=== PATIENT | male | born 1965 | race African-American/Black ===

== ENCOUNTER 2017-03-12 09:01 | Inpatient (IN) | payer OTHER ==
[2017-03-12 09:21] VITALS: BMI 25.0
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
[2017-03-12] MEDS ORDERED: MAGNESIUM CITRATE 300 ML BOTTLE PO PRN (09:40)
[2017-03-12] MEDS ORDERED: NICOTINE POLACRILEX 2 MG GUM BUC PRN (09:40)
[2017-03-12] MEDS ORDERED: ACETAMINOPHEN 325 MG TABLET (FP) PO PRN (09:40)
[2017-03-12] MEDS ORDERED: P-EPHED 60MG/TRIPROLIDI 2.5MG TABLET PO PRN (09:40)
[2017-03-12] MEDS ORDERED: IBUPROFEN 400 MG TABLET (FP) PO PRN (09:40)
[2017-03-12] MEDS ORDERED: chlordiazePOXIDE HCL 25 MG CAPSULE PO PRN (09:40)
[2017-03-12] MEDS ORDERED: hydrOXYzine PAMOATE 50 MG CAPSULE (FP) PO PRN (09:40)
[2017-03-12] MEDS ORDERED: MAGNESIUM HYDROX 2400MG/30ML ORAL SUSPENSION 30 ML CUP PO PRN (09:40)
[2017-03-12] MEDS ORDERED: guaiFENesin/D-METHORPHAN HB 10 ML UNIT-DOSE CUPS PO PRN (09:40)
[2017-03-12] MEDS ORDERED: MENTHOL/PHENOL 1 EACH UD MM PRN (09:40)
[2017-03-12] MEDS ORDERED: LOPERAMIDE HCL 2 MG CAPSULE PO PRN (09:40)
[2017-03-12] MEDS ORDERED: MAG HYDROX/AL HYDROX/SIMETH 30 ML UNIT-DOSE CUP PO PRN (09:40)
[2017-03-12] MEDS ORDERED: PATIENT'S OWN MEDICATION (NON-FORMULARY) (Lisinopril [Zestril] 2.5 MG) PO SCH (10:00)
[2017-03-12] MEDS ORDERED: PATIENT'S OWN MEDICATION (NON-FORMULARY) (Metformin Hcl [Glucophage] 1,000 MG) PO SCH (10:00)
[2017-03-12] MEDS ORDERED: chlordiazePOXIDE HCL 25 MG CAPSULE PO ONE (12:30)
[2017-03-12] MEDS ORDERED: LISINOPRIL 5 MG TABLET (FP) PO ONE (12:30)
[2017-03-12] MEDS: INSULIN SLIDING SCALE (NOVOLOG) 1 VIAL SQ SCH ×3 (13:44→22:50)
[2017-03-12] MEDS: sitaGLIPtin PHOSPHATE 50 MG TABLET PO SCH (13:44)
[2017-03-12] MEDS: PRENATAL VITAMINS W/ FOLIC ACID TABLET (FP) PO SCH (13:46)
[2017-03-12] MEDS ORDERED: INSULIN (NOVOLOG) ASPART 100 UNITS/ML 10ML VIAL ONE (13:51)
[2017-03-12] MEDS: metFORMIN HCL 500 MG TABLET (FP) PO SCH (18:03)
[2017-03-12] MEDS: chlordiazePOXIDE HCL 25 MG CAPSULE PO SCH ×2 (18:07→22:48)
[2017-03-12 18:17] LABS: URINE APPEARANCE CLEAR; URINE BILIRUBIN NEGATIVE (NEGATIVE); URINE BLOOD NEGATIVE (NEGATIVE); URINE COLOR LTYELLOW; URINE GLUCOSE (UA) 3+ (NEGATIVE); URINE KETONE 1+ (NEGATIVE); URINE NITRITE NEGATIVE (NEGATIVE); URINE PROTEIN NEGATIVE (NEGATIVE); URINE UROBILINOGEN NEGATIVE mg/dL (0.2-1.0)
--- NOTE | 2017-03-12 19:40 | EKG ---
Test Reason : Blood Pressure : / mmHG Vent. Rate : 068 BPM Atrial Rate : 068 BPM P-R Int : 146 ms QRS Dur : 084 ms QT Int : 388 ms P-R-T Axes : 074 044 041 degrees QTc Int : 412 ms NORMAL SINUS RHYTHM PROBABLLE ATRIAL ABNORMALITY NO PREVIOUS ECGS AVAILABLE CLINICAL CORRELATION IS RECOMMENDED Confirmed by TESSA WARNER MD ([id number]) on 03/12/2017 7:39:59 PM Referred By: Confirmed By:TESSA WARNER MD
[2017-03-12] MEDS ORDERED: diphenhydrAMINE HCL 50 MG CAPSULE PO PRN (22:00)
[2017-03-12] MEDS: THIAMINE HCL 100 MG TABLET (FP) PO SCH (22:48)
[2017-03-12 23:14] LABS: URINE LEUK ESTERASE Negative (NEGATIVE)
[2017-03-13] MEDS: chlordiazePOXIDE HCL 25 MG CAPSULE PO SCH ×4 (06:27→22:27)
[2017-03-13] MEDS: metFORMIN HCL 500 MG TABLET (FP) PO SCH ×2 (06:28→17:14)
[2017-03-13] MEDS: sitaGLIPtin PHOSPHATE 50 MG TABLET PO SCH (06:28)
[2017-03-13] MEDS ORDERED: INSULIN (NOVOLOG) ASPART 100 UNITS/ML 10ML VIAL ONE ×2 (06:37→11:00)
[2017-03-13] MEDS: INSULIN SLIDING SCALE (NOVOLOG) 1 VIAL SQ SCH ×4 (07:45→22:29)
[2017-03-13] MEDS: PRENATAL VITAMINS W/ FOLIC ACID TABLET (FP) PO SCH (10:14)
[2017-03-13] MEDS: LISINOPRIL 5 MG TABLET (FP) PO SCH (10:14)
[2017-03-13 10:22] LABS: MCH 30.6 pg (25.7-33.7); MCHC 32.6 g/dl (32.0-35.9); MEAN CELL VOLUME 93.6 fl (80-96); MEAN PLT VOLUME 10.4 fl (7.5-11.1); PLATELET COUNT 180 K/MM3 (134-434); WHITE BLOOD COUNT 11.3 K/mm3 (4.0-10.0)
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
[2017-03-13 10:32] LABS: ALBUMIN 3.8 g/dl (3.4-5.0); ALK PHOS 64 U/L (45-117); ANION GAP 8 (8-16); BILIRUBIN,TOTAL 0.4 mg/dL (0.2-1.0); CALCIUM 9.2 mg/dL (8.5-10.1); CO2 29 mmol/L (21-32); GLUCOSE,RANDOM 168 mg/dL (74-106); SGOT/AST 54 U/L (15-37); SGPT/ALT 51 U/L (12-78); TOT PROT 7.7 g/dl (6.4-8.2)
--- NOTE | 2017-03-13 11:05 | PN ---
S CIWA - CIWA Score Nausea/Vomitin-Mild Nausea/No Vomiting Muscle Tremors: 3 Anxiety: 3 Agitation: 3 Paroxysmal Sweats: 3 Orientation: 0-Oriented Tacttile Disturbances: 0-None Auditory Disturbances: 0-None Visual Disturbances: 0-None Headache: 0-None Present CIWA-Ar Total Score: 13 S Progress Note (SOAP) Subjective: Sweating,interrupted sleep,restless. Objective: 03/13/17 11:04 Vital Signs - 8 hr 03/13/17 03/13/17 03/13/17 03:56 05:00 10:00 Temperature 96.9 F L 97.1 F L Pulse Rate 80 74 Respiratory 18 18 18 Rate Blood Pressure 108/77 112/53 Laboratory Last Values WBC 11.3 K/mm3 (4.0-10.0) H D 03/13/17 07:40 RBC 5.13 M/mm3 (4.00-5.60) 03/13/17 07:40 Hgb 15.7 GM/dL (11.7-16.9) D 03/13/17 07:40 Hct 48.0 % (35.4-49) D 03/13/17 07:40 MCV 93.6 fl (80-96) 03/13/17 07:40 MCH 30.6 pg (25.7-33.7) 03/13/17 07:40 MCHC 32.6 g/dl (32.0-35.9) 03/13/17 07:40 RDW 14.0 % (11.9-15.9) 03/13/17 07:40 Plt Count 180 K/MM3 (134-434) 03/13/17 07:40 MPV 10.4 fl (7.5-11.1) 03/13/17 07:40 Sodium 139 mmol/L (136-145) 03/13/17 07:40 Potassium 3.9 mmol/L (3.5-5.1) 03/13/17 07:40 Chloride 102 mmol/L (98-107) 03/13/17 07:40 Carbon Dioxide 29 mmol/L (21-32) 03/13/17 07:40 Anion Gap 8 (8-16) 03/13/17 07:40 BUN 13 mg/dL (7-18) 03/13/17 07:40 Creatinine 1.0 mg/dL (0.7-1.3) 03/13/17 07:40 Creat Clearance w eGFR > 60 (>60) 03/13/17 07:40 POC Glucometer 185 UNITS (()) 03/13/17 06:27 Random Glucose 168 mg/dL (74-106) H D 03/13/17 07:40 Calcium 9.2 mg/dL (8.5-10.1) 03/13/17 07:40 Total Bilirubin 0.4 mg/dL (0.2-1.0) D 03/13/17 07:40 AST 54 U/L (15-37) H D 03/13/17 07:40 ALT 51 U/L (12-78) D 03/13/17 07:40 Alkaline Phosphatase 64 U/L (45-117) D 03/13/17 07:40 Total Protein 7.7 g/dl (6.4-8.2) 03/13/17 07:40 Albumin 3.8 g/dl (3.4-5.0) 03/13/17 07:40 Urine Color Ltyellow 03/12/17 14:40 Urine Appearance Clear 03/12/17 14:40 Urine pH 5.0 (5.0-8.0) 03/12/17 14:40 Ur Specific [place] 1.015 (1.005-1.025) 03/12/17 14:40 Urine Protein Negative (NEGATIVE) 03/12/17 14:40 Urine Glucose (UA) 3+ (NEGATIVE) H 03/12/17 14:40 Urine Ketones 1+ (NEGATIVE) H 03/12/17 14:40 Urine Blood Negative (NEGATIVE) 03/12/17 14:40 Urine Nitrite Negative (NEGATIVE) 03/12/17 14:40 Urine Bilirubin Negative (NEGATIVE) 03/12/17 14:40 Urine Urobilinogen Negative mg/dL (0.2-1.0) 03/12/17 14:40 Ur Leukocyte Esterase Negative (NEGATIVE) 03/12/17 14:40 RPR Titer Nonreactive (NONREACTIVE) 03/13/17 07:40 labss noted Assessment: 03/13/17 11:04 Withdrawal sx. Plan: Continue detox
[2017-03-13] MEDS: THIAMINE HCL 100 MG TABLET (FP) PO SCH (22:27)
[2017-03-13] MEDS: ZOLPIDEM TARTRATE 5 MG TABLET PO PRN (22:28)
[2017-03-14] MEDS: chlordiazePOXIDE HCL 25 MG CAPSULE PO SCH ×2 (05:32→11:11)
[2017-03-14] MEDS: metFORMIN HCL 500 MG TABLET (FP) PO SCH ×2 (07:22→17:12)
[2017-03-14] MEDS: INSULIN SLIDING SCALE (NOVOLOG) 1 VIAL SQ SCH ×5 (07:24→22:12)
[2017-03-14] MEDS: sitaGLIPtin PHOSPHATE 50 MG TABLET PO SCH (07:24)
[2017-03-14] MEDS ORDERED: INSULIN (NOVOLOG) ASPART 100 UNITS/ML 10ML VIAL ONE ×4 (08:10→21:06)
[2017-03-14] MEDS: LISINOPRIL 5 MG TABLET (FP) PO SCH (11:11)
[2017-03-14] MEDS: PRENATAL VITAMINS W/ FOLIC ACID TABLET (FP) PO SCH (11:12)
--- NOTE | 2017-03-14 11:54 | PN ---
[facility] CIWA - CIWA Score Nausea/Vomitin-No Nausea/No Vomiting Muscle Tremors: 4-Moderate,w/Arms Extend Anxiety: 4-Mod. Anxious/Guarded Agitation: 4-Moderately Restless Paroxysmal Sweats: 1-Minimal Palms Moist Orientation: 0-Oriented Tacttile Disturbances: 3-Moderate Itch/Numb/Burn Auditory Disturbances: 0-None Visual Disturbances: 0-None Headache: 0-None Present CIWA-Ar Total Score: 16 BHS Progress Note (SOAP) Subjective: ANXIETY,SWEATS,DECREASED TREMORS. Objective: 03/14/17 11:53 Vital Signs Temperature 96.6 F L 03/14/17 10:56 Pulse Rate 94 H 03/14/17 10:56 Respiratory Rate 18 03/14/17 10:56 Blood Pressure 104/74 03/14/17 10:56 O2 Sat by Pulse Oximetry (%) Laboratory Last Values WBC 11.3 K/mm3 (4.0-10.0) H D 03/13/17 07:40 RBC 5.13 M/mm3 (4.00-5.60) 03/13/17 07:40 Hgb 15.7 GM/dL (11.7-16.9) D 03/13/17 07:40 Hct 48.0 % (35.4-49) D 03/13/17 07:40 MCV 93.6 fl (80-96) 03/13/17 07:40 MCH 30.6 pg (25.7-33.7) 03/13/17 07:40 MCHC 32.6 g/dl (32.0-35.9) 03/13/17 07:40 RDW 14.0 % (11.9-15.9) 03/13/17 07:40 Plt Count 180 K/MM3 (134-434) 03/13/17 07:40 MPV 10.4 fl (7.5-11.1) 03/13/17 07:40 Sodium 139 mmol/L (136-145) 03/13/17 07:40 Potassium 3.9 mmol/L (3.5-5.1) 03/13/17 07:40 Chloride 102 mmol/L (98-107) 03/13/17 07:40 Carbon Dioxide 29 mmol/L (21-32) 03/13/17 07:40 Anion Gap 8 (8-16) 03/13/17 07:40 BUN 13 mg/dL (7-18) 03/13/17 07:40 Creatinine 1.0 mg/dL (0.7-1.3) 03/13/17 07:40 Creat Clearance w eGFR > 60 (>60) 03/13/17 07:40 POC Glucometer 247 UNITS (()) 03/14/17 11:21 Random Glucose 168 mg/dL (74-106) H D 03/13/17 07:40 Calcium 9.2 mg/dL (8.5-10.1) 03/13/17 07:40 Total Bilirubin 0.4 mg/dL (0.2-1.0) D 03/13/17 07:40 AST 54 U/L (15-37) H D 03/13/17 07:40 ALT 51 U/L (12-78) D 03/13/17 07:40 Alkaline Phosphatase 64 U/L (45-117) D 03/13/17 07:40 Total Protein 7.7 g/dl (6.4-8.2) 03/13/17 07:40 Albumin 3.8 g/dl (3.4-5.0) 03/13/17 07:40 Urine Color Ltyellow 03/12/17 14:40 Urine Appearance Clear 03/12/17 14:40 Urine pH 5.0 (5.0-8.0) 03/12/17 14:40 Ur Specific [place] 1.015 (1.005-1.025) 03/12/17 14:40 Urine Protein Negative (NEGATIVE) 03/12/17 14:40 Urine Glucose (UA) 3+ (NEGATIVE) H 03/12/17 14:40 Urine Ketones 1+ (NEGATIVE) H 03/12/17 14:40 Urine Blood Negative (NEGATIVE) 03/12/17 14:40 Urine Nitrite Negative (NEGATIVE) 03/12/17 14:40 Urine Bilirubin Negative (NEGATIVE) 03/12/17 14:40 Urine Urobilinogen Negative mg/dL (0.2-1.0) 03/12/17 14:40 Ur Leukocyte Esterase Negative (NEGATIVE) 03/12/17 14:40 RPR Titer Nonreactive (NONREACTIVE) 03/13/17 07:40 Assessment: 03/14/17 11:53 WITHDRAWAL SX Plan: CONTINUE DETOX
[2017-03-14] MEDS: chlordiazePOXIDE 5 MG CAPSULE PO SCH ×2 (17:12→22:14)
[2017-03-14] MEDS: THIAMINE HCL 100 MG TABLET (FP) PO SCH (22:14)
[2017-03-14] MEDS: ZOLPIDEM TARTRATE 5 MG TABLET PO PRN (22:14)
[2017-03-15] MEDS: chlordiazePOXIDE 5 MG CAPSULE PO SCH ×2 (05:35→10:26)
[2017-03-15] MEDS: metFORMIN HCL 500 MG TABLET (FP) PO SCH ×2 (06:28→17:15)
[2017-03-15] MEDS: sitaGLIPtin PHOSPHATE 50 MG TABLET PO SCH (06:29)
[2017-03-15] MEDS ORDERED: INSULIN (NOVOLOG) ASPART 100 UNITS/ML 10ML VIAL ONE ×3 (06:49→16:37)
[2017-03-15] MEDS: INSULIN SLIDING SCALE (NOVOLOG) 1 VIAL SQ SCH ×3 (07:08→17:16)
[2017-03-15] MEDS: LISINOPRIL 5 MG TABLET (FP) PO SCH (10:26)
[2017-03-15] MEDS: PRENATAL VITAMINS W/ FOLIC ACID TABLET (FP) PO SCH (10:26)
--- NOTE | 2017-03-15 13:15 | PN ---
BHS Progress Note (SOAP) Subjective: Sweating, Body Aches. Objective: PT. A & O X 3, OBSERVED AMBULATING ON UNIT. NO ACUTE DISTRESS. 03/15/17 13:12 Vital Signs Temperature 98.0 F 03/15/17 10:11 Pulse Rate 86 03/15/17 10:11 Respiratory Rate 20 03/15/17 10:11 Blood Pressure 118/67 03/15/17 10:11 O2 Sat by Pulse Oximetry (%) Laboratory Tests 03/12/17 03/12/17 03/12/17 09:23 13:39 14:40 WBC RBC Hgb Hct MCV MCH MCHC RDW Plt Count MPV Sodium Potassium Chloride Carbon Dioxide Anion Gap BUN Creatinine Creat Clearance w eGFR POC Glucometer 266 344 Random Glucose Calcium Total Bilirubin AST ALT Alkaline Phosphatase Total Protein Albumin Urine Color Ltyellow Urine Appearance Clear Urine pH 5.0 Ur Specific [place] 1.015 Urine Protein Negative Urine Glucose (UA) 3+ H Urine Ketones 1+ H Urine Blood Negative Urine Nitrite Negative Urine Bilirubin Negative Urine Urobilinogen Negative Ur Leukocyte Esterase Negative RPR Titer 03/12/17 03/12/17 03/13/17 17:46 21:55 06:27 WBC RBC Hgb Hct MCV MCH MCHC RDW Plt Count MPV Sodium Potassium Chloride Carbon Dioxide Anion Gap BUN Creatinine Creat Clearance w eGFR POC Glucometer 218 448 185 Random Glucose Calcium Total Bilirubin AST ALT Alkaline Phosphatase Total Protein Albumin Urine Color Urine Appearance Urine pH Ur Specific [place] Urine Protein Urine Glucose (UA) Urine Ketones Urine Blood Urine Nitrite Urine Bilirubin Urine Urobilinogen Ur Leukocyte Esterase RPR Titer 03/13/17 03/13/17 03/13/17 07:40 07:40 07:40 WBC 11.3 H D RBC 5.13 Hgb 15.7 D Hct 48.0 D MCV 93.6 MCH 30.6 MCHC 32.6 RDW 14.0 Plt Count 180 MPV 10.4 Sodium 139 Potassium 3.9 Chloride 102 Carbon Dioxide 29 Anion Gap 8 BUN 13 Creatinine 1.0 Creat Clearance w eGFR > 60 POC Glucometer Random Glucose 168 H D Calcium 9.2 Total Bilirubin 0.4 D AST 54 H D ALT 51 D Alkaline Phosphatase 64 D Total Protein 7.7 Albumin 3.8 Urine Color Urine Appearance Urine pH Ur Specific [place] Urine Protein Urine Glucose (UA) Urine Ketones Urine Blood Urine Nitrite Urine Bilirubin Urine Urobilinogen Ur Leukocyte Esterase RPR Titer Nonreactive 03/13/17 03/13/17 03/13/17 10:53 17:11 20:33 WBC RBC Hgb Hct MCV MCH MCHC RDW Plt Count MPV Sodium Potassium Chloride Carbon Dioxide Anion Gap BUN Creatinine Creat Clearance w eGFR POC Glucometer 289 294 106 Random Glucose Calcium Total Bilirubin AST ALT Alkaline Phosphatase Total Protein Albumin Urine Color Urine Appearance Urine pH Ur Specific [place] Urine Protein Urine Glucose (UA) Urine Ketones Urine Blood Urine Nitrite Urine Bilirubin Urine Urobilinogen Ur Leukocyte Esterase RPR Titer 03/14/17 03/14/17 03/14/17 05:30 11:21 16:56 WBC RBC Hgb Hct MCV MCH MCHC RDW Plt Count MPV Sodium Potassium Chloride Carbon Dioxide Anion Gap BUN Creatinine Creat Clearance w eGFR POC Glucometer 238 247 269 Random Glucose Calcium Total Bilirubin AST ALT Alkaline Phosphatase Total Protein Albumin Urine Color Urine Appearance Urine pH Ur Specific [place] Urine Protein Urine Glucose (UA) Urine Ketones Urine Blood Urine Nitrite Urine Bilirubin Urine Urobilinogen Ur Leukocyte Esterase RPR Titer 03/14/17 03/15/17 03/15/17 20:57 05:37 11:23 WBC RBC Hgb Hct MCV MCH MCHC RDW Plt Count MPV Sodium Potassium Chloride Carbon Dioxide Anion Gap BUN Creatinine Creat Clearance w eGFR POC Glucometer 227 253 267 Random Glucose Calcium Total Bilirubin AST ALT Alkaline Phosphatase Total Protein Albumin Urine Color Urine Appearance Urine pH Ur Specific [place] Urine Protein Urine Glucose (UA) Urine Ketones Urine Blood Urine Nitrite Urine Bilirubin Urine Urobilinogen Ur Leukocyte Esterase RPR Titer labs noted. Assessment: 03/15/17 13:12 WITHDRAWAL SYMPTOMS. Plan: CONTINUE DETOX. INCREASE DAILY PO FLUID INTAKE.
[2017-03-15] MEDS ORDERED: chlordiazePOXIDE HCL 10 MG CAPSULE PO SCH (17:00)
[2017-03-15 17:41] VITALS: BP 108/68; PULSE 80; TEMP 97.8
--- NOTE | 2017-03-15 20:41 | DS ---
[facility] Detox Discharge Summary Admission Date: 03/12/17 Discharge Date: 03/15/17 - History Present History: Alcohol Dependence, Cocaine Dependence Additional Comments: patient insists to leave the facility refuses to wait face to face with the provider Pertinent Past History: diabetes ii - Physical Exam Results Vital Signs: Vital Signs Temperature 97.8 F 03/15/17 17:40 Pulse Rate 80 03/15/17 17:40 Respiratory Rate 18 03/15/17 17:40 Blood Pressure 108/68 03/15/17 17:40 O2 Sat by Pulse Oximetry (%) Pertinent Admission Physical Exam Findings: withdrawal sx Laboratory Last Values WBC 11.3 K/mm3 (4.0-10.0) H D 03/13/17 07:40 RBC 5.13 M/mm3 (4.00-5.60) 03/13/17 07:40 Hgb 15.7 GM/dL (11.7-16.9) D 03/13/17 07:40 Hct 48.0 % (35.4-49) D 03/13/17 07:40 MCV 93.6 fl (80-96) 03/13/17 07:40 MCH 30.6 pg (25.7-33.7) 03/13/17 07:40 MCHC 32.6 g/dl (32.0-35.9) 03/13/17 07:40 RDW 14.0 % (11.9-15.9) 03/13/17 07:40 Plt Count 180 K/MM3 (134-434) 03/13/17 07:40 MPV 10.4 fl (7.5-11.1) 03/13/17 07:40 Sodium 139 mmol/L (136-145) 03/13/17 07:40 Potassium 3.9 mmol/L (3.5-5.1) 03/13/17 07:40 Chloride 102 mmol/L (98-107) 03/13/17 07:40 Carbon Dioxide 29 mmol/L (21-32) 03/13/17 07:40 Anion Gap 8 (8-16) 03/13/17 07:40 BUN 13 mg/dL (7-18) 03/13/17 07:40 Creatinine 1.0 mg/dL (0.7-1.3) 03/13/17 07:40 Creat Clearance w eGFR > 60 (>60) 03/13/17 07:40 POC Glucometer 248 UNITS (()) 03/15/17 16:17 Random Glucose 168 mg/dL (74-106) H D 03/13/17 07:40 Calcium 9.2 mg/dL (8.5-10.1) 03/13/17 07:40 Total Bilirubin 0.4 mg/dL (0.2-1.0) D 03/13/17 07:40 AST 54 U/L (15-37) H D 03/13/17 07:40 ALT 51 U/L (12-78) D 03/13/17 07:40 Alkaline Phosphatase 64 U/L (45-117) D 03/13/17 07:40 Total Protein 7.7 g/dl (6.4-8.2) 03/13/17 07:40 Albumin 3.8 g/dl (3.4-5.0) 03/13/17 07:40 Urine Color Ltyellow 03/12/17 14:40 Urine Appearance Clear 03/12/17 14:40 Urine pH 5.0 (5.0-8.0) 03/12/17 14:40 Ur Specific [place] 1.015 (1.005-1.025) 03/12/17 14:40 Urine Protein Negative (NEGATIVE) 03/12/17 14:40 Urine Glucose (UA) 3+ (NEGATIVE) H 03/12/17 14:40 Urine Ketones 1+ (NEGATIVE) H 03/12/17 14:40 Urine Blood Negative (NEGATIVE) 03/12/17 14:40 Urine Nitrite Negative (NEGATIVE) 03/12/17 14:40 Urine Bilirubin Negative (NEGATIVE) 03/12/17 14:40 Urine Urobilinogen Negative mg/dL (0.2-1.0) 03/12/17 14:40 Ur Leukocyte Esterase Negative (NEGATIVE) 03/12/17 14:40 RPR Titer Nonreactive (NONREACTIVE) 03/13/17 07:40 lab noted - Treatment Hospital Course: Detox Protocol Followed, Responded well Patient has Accepted a Rehab Referral to: [facility] - Medication Discharge Medications: Ambulatory Orders Gabapentin [Neurontin -] 100 mg PO HS #30 capsule 05/14/16 Metformin HCl [Glucophage] 1,000 mg PO BID #60 tablet 05/14/16 Sitagliptin Phosphate [Januvia -] 50 mg PO DAILY #30 tablet 05/14/16 Lisinopril [Zestril] 2.5 mg PO DAILY 03/12/17 - Diagnosis (1) Alcohol dependence with uncomplicated withdrawal Status: Acute (2) Diabetes mellitus treated with oral medication Status: Chronic (3) Nicotine dependence Status: Acute Qualifiers: Nicotine product type: cigarettes Substance use status: in withdrawal Qualified Code(s): F17.213 - Nicotine dependence, cigarettes, with withdrawal; F17.213 - Nicotine dependence, cigarettes, with withdrawal (4) Cocaine dependence, uncomplicated Status: Chronic - AMA Did Patient Leave Against Medical Advice: Yes
== END 2017-03-15 18:50 | disposition left against medical advice (07) | DRG 770 ==
LOC: YASAS 09:01 → Y3N 12:10
PROVIDERS: ADMIT Internal Medicine; ATTEND Internal Medicine
PROC: HZ2ZZZZ Detoxification Services for Substance Abuse Treatment (ICD-10-PCS; principal; 2017-03-12)
DX: F10.230 Alcohol dependence with withdrawal, uncomplicated (principal); F14.20 Cocaine dependence, uncomplicated; F17.210 Nicotine dependence, cigarettes, uncomplicated; F19.24 Other psychoactive substance dependence with psychoactive substance-induced mood disorder; F19.282 Other psychoactive substance dependence with psychoactive substance-induced sleep disorder; E11.9 Type 2 diabetes mellitus without complications; Z79.84 Long term (current) use of oral hypoglycemic drugs; S62.91XD Unspecified fracture of right hand, subsequent encounter for fracture with routine healing; X58.XXXD Exposure to other specified factors, subsequent encounter
CPT/HCPCS: 36415; 80053; 81003; 85027; 86593; 93005; 93010